=== PATIENT | female | born 1975 | race American Indian/Alaskan Native ===

== ENCOUNTER 2016-05-05 20:09 | Emergency (ER) | payer SELFPAY ==
[2016-05-05 21:35] VITALS: BP 152/94
--- NOTE | 2016-05-05 23:00 | Cat Scan Report ---
FINAL REPORT PROCEDURE: CT HEAD/BRAIN WO CON TECHNIQUE: Computerized tomography of the head was performed without contrast material. HISTORY: head injury COMPARISON: No prior studies are available for comparison. FINDINGS: Skull and scalp: Normal. Paranasal sinuses: Normal. Ventricles and subarachnoid spaces: Normal. Cerebrum: No evidence of hemorrhage, acute infarction or mass . Cerebellum and brainstem: No evidence of hemorrhage, acute infarction or mass. Vasculature: Normal. Comments: None. IMPRESSION: Normal Examination
[2016-05-05] MEDS ORDERED: TYLENOL PO ONE (23:31)
[2016-05-06] MEDS ORDERED: NORCO 5/325 PO ONE (03:23)
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
[2016-05-06] MEDS ORDERED: TRIPLE ANTIBIOTIC TP ONE (03:52)
== END 2016-05-06 04:44 | disposition home or self-care (01) ==
LOC: ED 20:09
DX: R51 Headache (principal); V89.2XXA Person injured in unspecified motor-vehicle accident, traffic, initial encounter; Y93.89 Activity, other specified; Y99.9 Unspecified external cause status; Y92.89 Other specified places as the place of occurrence of the external cause
CPT/HCPCS: 70450; 81025; A6250